=== PATIENT | female | born 1950 ===

== ENCOUNTER 2022-03-15 19:54 | Outpatient (CLI) | payer MEDICARE, BC, SELFPAY ==
[2022-03-15 16:11] LABS: Abs Immature Grans 0.01 10^3/uL (0.0-0.06); Absolute Basophil Count 0.05 10^3/uL (0.0-0.2); Absolute Eosinophil Count 0.15 10^3/uL (0.0-0.7); Absolute Lymphocyte Count 1.84 10^3/uL (1.2-3.4); Absolute Monocyte Count 0.52 10^3/uL (0.1-0.8); Absolute Neutrophil Count 3.23 10^3/uL (1.2-6.7); Basophils % 0.9; Eosinophils % 2.6; HCT 38.1 % (36.0-46.0); Immature Grans % 0.2; Lymphocytes % 31.7; MCH 31.3 pg (27.0-33.0); MCHC 34.1 % (32.0-36.0); MCV 92 fL (80-95); MPV 9.4 fL (8.0-11.0); Neutrophils % 55.6; Platelet Count 231 10^3/uL (130-400); RBC 4.15 10^6/uL (3.93-5.22); RDW 11.9 % (11.7-14.6); RDW-SD 40.3 fL
[2022-03-15 18:31] LABS: Calcium 8.8 mg/dL (8.5-10.1); PHOSPHORUS 4.3 mg/dL (2.6-4.7)
[2022-03-17 14:44] LABS: ANA Interpretation Positive (Negative); ANA Titer Pattern 1:80 Homogeneous
== END 2022-03-15 19:55 | disposition home or self-care (01) ==
LOC: LBO 19:56
PROVIDERS: Visit Provider Dermatology
DX: L94.2 Calcinosis cutis (principal); Z79.899 Other long term (current) drug therapy
CPT/HCPCS: 36415; 82310; 84100; 85025; 86038

== ENCOUNTER 2025-04-20 03:01 | Outpatient (CLI) | payer MEDICARE, BC, SELFPAY ==
--- NOTE | 2025-04-20 | DI.DEXA_ITS ---
Exam(s) XR DEXA BONE DENSITY W/WO ZI EXAM: XR DEXA BONE DENSITY W/WO ZI CLINICAL HISTORY: SCREENING FOR OSTEOPOROSIS, Z78.0 TECHNIQUE: [employer] C densitometer analysis of left hip, lumbar spine and left forearm. Lateral survey image of the thoracic and lumbar spine. COMPARISON: No exams were available for comparison FINDINGS: Lateral view of the thoracic and lumbar spine shows no evidence of compression fractures. Bone mineral density measurements of the lumbar spine correspond to a total T- score of -2.4, in the osteopenic range. Bone mineral density measurements of the left hip correspond to a total T-score of -1.1. The femoral neck T-score is -2.0, in the osteopenic range. Theleft forearm bone mineral density measurements correspond to a T-score of the distal 3rd of -1.4, in the osteopenic range. IMPRESSION: Osteopenia of the spine, hip and forearm.
== END 2025-04-20 03:21 ==
PROVIDERS: PCP Student in an Organized Health Care Education/Training Program; Visit Provider Student in an Organized Health Care Education/Training Program
DX: Z13.820 Encounter for screening for osteoporosis (principal); Z78.0 Asymptomatic menopausal state
CPT/HCPCS: 77080